=== PATIENT | male | born 1960 | race Caucasian/White ===

== ENCOUNTER 2017-06-15 09:44 | Day surgery (SDC) | payer OTHER ==
[~2017-06-15] VITALS: Ht 167.6 cm; Wt 61.9 kg
[~2017-06-15 09:44] MED LIST: BENZ0.5T PO; CEFAZOLIN 1,000 MG ONE; CHOL10003 PO; CLON-364 PO; DOCU100T6 PO; FENTANYL PF 250 MCG/5ML ONE; HALO10TA PO; MELA10CA PO; METO50TA82 PO; MIDAZOLAM 1 MG/ML, 2ML ONE; MULT-224 PO; PROPOFOL 10 MG/ML, 20ML ONE; ROCURONIUM 10MG/ML,5ML ONE; SERT50TA5 PO; SODIUM CHLORIDE 0.9% PF 10ML ONE; TRAZ150T62 PO
[2017-06-15] MEDS ORDERED: LACTATED RINGERS 1,000 ML IV SCH (10:06)
[2017-06-15 10:31] VITALS: BP 106/61
[2017-06-15] MEDS ORDERED: BUPIVACAINE/PF 0.25% ONE (10:55)
[2017-06-15] MEDS ORDERED: EPINEPHRINE 1 MG/ML, 1ML ONE (10:55)
[2017-06-15] MEDS ORDERED: GLYCOPYRROLATE 0.2MG/1ML, 5ML ONE (11:12)
[2017-06-15] MEDS ORDERED: NEOSTIGMINE 1 MG/ML, 10ML ONE (11:12)
[2017-06-15] MEDS ORDERED: MIDAZOLAM 1 MG/ML, 2ML IV PRN (11:30)
[2017-06-15] MEDS ORDERED: ONDANSETRON 2MG/ML, 2ML IVPush PRN ×2 (11:30→13:00)
[2017-06-15] MEDS ORDERED: HYDROmorphone 1 MG/ML, 1ML IV PRN (11:30)
[2017-06-15] MEDS ORDERED: PROMETHAZINE 12.5 MG SUPP PR PRN (11:30)
[2017-06-15] MEDS ORDERED: morphine SULFATE 10 MG/ML, 1ML IV PRN (11:30)
[2017-06-15] MEDS ORDERED: LABETALOL 5MG/ML, 20ML IV PRN (11:30)
[2017-06-15] MEDS ORDERED: FENTANYL PF 100 MCG/2ML IV PRN (11:30)
[2017-06-15] MEDS ORDERED: hydrALAzine 20 MG/ML, 1ML IV PRN (11:30)
[2017-06-15] MEDS ORDERED: OXYcodone 5 MG/5 ML ORAL.SOL UDC PO PRN (11:30)
[2017-06-15] MEDS ORDERED: ACETAMINOPHEN 325 MG TABLET PO PRN (11:30)
[2017-06-15] MEDS ORDERED: PROMETHAZINE 25 MG/ML, 1ML IV PRN (11:30)
[2017-06-15] MEDS ORDERED: PHENYLEPHRINE 10 MG/ML ONE (11:41)
[2017-06-15] MEDS ORDERED: BUPIVACAINE/PF-EPI 0.25% 1:200K INFIL ONE (11:55)
[2017-06-15] MEDS ORDERED: KETOROLAC 30 MG/1 ML ONE (12:27)
[2017-06-15] MEDS ORDERED: MEPERIDINE/PF 25MG/0.5ML ONE (12:38)
[2017-06-15] MEDS: MEPERIDINE/PF 25MG/0.5ML IVPush PRN ×2 (12:40→12:48)
[2017-06-15] MEDS ORDERED: OXYcodone 5 MG/5 ML ORAL.SOL UDC ONE (12:54)
[2017-06-15] MEDS ORDERED: FENTANYL PF 100 MCG/2ML ONE (12:54)
[2017-06-15] MEDS ORDERED: KETOROLAC 30 MG/1 ML IVPush PRN (13:00)
[2017-06-15] MEDS ORDERED: morphine SULFATE 10 MG/ML, 1ML IVPush PRN (13:00)
[2017-06-15] MEDS ORDERED: HYDROcodone/APAP 5/325 TABLET PO PRN (13:00)
== END 2017-06-15 19:10 | disposition home or self-care (01) ==
LOC: OUT 09:44
PROVIDERS: ATTEND Surgery
DX: K40.90 Unilateral inguinal hernia, without obstruction or gangrene, not specified as recurrent (principal); I10 Essential (primary) hypertension; Z85.828 Personal history of other malignant neoplasm of skin; Z98.890 Other specified postprocedural states; G20 Parkinson's disease; F20.9 Schizophrenia, unspecified; H54.62 Unqualified visual loss, left eye, normal vision right eye
CPT/HCPCS: 49650; C1781; J0171; J0690; J1885; J2175; J2250; J2370; J2704; J2710; J3010; J3490; J7120; S2900

== ENCOUNTER 2018-10-16 03:02 | Observation (INO) | payer MEDICAID, MEDICARE, OTHER ==
[~2018-10-16] VITALS: Ht 160 cm; Wt 67.4 kg
[2018-10-17 08:08] VITALS: BP 92/58
== END 2018-10-17 12:25 | disposition home or self-care (01) ==
LOC: INTOOBSV 04:48 → 4WST 04:48 → DCLOUNGE 10-17 12:11
PROVIDERS: ADMIT Internal Medicine; ATTEND Internal Medicine
DX: A41.9 Sepsis, unspecified organism (principal); N39.0 Urinary tract infection, site not specified; D53.9 Nutritional anemia, unspecified; F20.9 Schizophrenia, unspecified; G20 Parkinson's disease; R13.10 Dysphagia, unspecified; G80.9 Cerebral palsy, unspecified; Z79.899 Other long term (current) drug therapy; Z87.440 Personal history of urinary (tract) infections
CPT/HCPCS: 36415; 80048; 80053; 83605; 84145; 85025; 87040; 87086; 92610; 96365; 96366; 97162; 97166; G0378; J0696; J7030